=== PATIENT | male | born 1950 | race Caucasian/White ===

== ENCOUNTER 2020-12-22 05:40 | Emergency (ER) | payer MEDICARE ==
[~2020-12-22] VITALS: Ht 180.3 cm; Wt 116.4 kg
--- NOTE | 2020-12-22 06:17 | PHYS DOC ---
General Adult HPI: HPI: Patient is a 70 year old male who presents with cardiopulmonary arrest. Pt. witness arrest when he arrived at [facility] hemodialysis. Patient is appropriate for collapse reportedly been short of breath, CPR started immediately. Pt. monitor at scene showed EMD or PEA. Pt. on arrival only had pulses with comp ression. Monitor showed PEA with an occasional complex. No spontaneous respirations or pulses. See Code sheet for detail. Code called at 0556 hrs. No current information on pt. available. Attempts are being made to contact primary and family through Command Information at shift change. Enriqueta Domínguez identified at spouse [phone]. Was able to contact at above number. She advised he recently had issues with increased dyspnea. Pt. on HD secondary chronic renal failure due to DM. She will call her daughter to be with her. Pt. had follow up with cardiology on 01/06 for cardiac issues. Pt. primary was Dr. Jacob Palomino. [phone]. Message left. Review of Systems: Review of Systems: ROS- not available Family History: Family History: Not available Current Medications: Current Meds: Not available Allergies: Allergies: Not Avialble Physical Exam: PE: Constitutional: Chronically ill in appearance. [] HENT: oral air way Eyes: fixed and dilated Neck: Trache mid line. ] Cardiovascular: No pulses Lungs & Thorax: Breath sound only with BMV. Crackles. Appeared equal. Abdomen: Distended Skin: pale, cyanotic Back: some stasis Extremities: edema ankle Neurologic: Non responsive EKG: EKG: [] Radiology/Procedures: Radiology/Procedures: [] Heart Score: Risk Factors: Risk Factors: DM, Current or recent (<one month) smoker, HTN, HLP, family history of CAD, obesity. Risk Scores: Score 0 - 3: 2.5% MACE over next 6 weeks - Discharge Home Score 4 - 6: 20.3% MACE over next 6 weeks - Admit for Clinical Observation Score 7 - 10: 72.7% MACE over next 6 weeks - Early Invasive Strategies Course & Med Decision Making: Course & Med Decision Making Pertinent Labs and Imaging studies reviewed. (See chart for details) See Code sheet for details Impression: 1. Cardiopulmonary arrest- Time of 0556 12-22-2020. 2. Hx. DM 3. Hx. ESRDz- HD on M/W/F Pt. endorsed to Dr. Romano at shift change. [] Dragon Disclaimer: Dragon Disclaimer: This electronic medical record was generated, in whole or in part, using a voice recognition dictation system. Dragon Disclaimer This chart was dictated in whole or in part using Voice Recognition software in a busy, high-work load, and often noisy Emergency Department environment. It may contain unintended and wholly unrecognized errors or omissions. MARK HUYNH MD Dec 22, 2020 06:17
[2020-12-22] MEDS ORDERED: SODIUM BICARB ADULT 8.4% 50 MEQ/50 ML DISP.SYRIN. ONE (12:00)
[2020-12-22] MEDS ORDERED: EPINEPHrine SYRINGE 1 MG/10 ML SYRINGE ONE (12:00)
== END 2020-12-22 12:35 ==
LOC: ER 05:40
DX: I46.9 Cardiac arrest, cause unspecified (principal); E11.22 Type 2 diabetes mellitus with diabetic chronic kidney disease; N18.9 Chronic kidney disease, unspecified
CPT/HCPCS: 82947; 92950; 99285; J0171